=== PATIENT | female | born 1965 | race Caucasian/White ===

== ENCOUNTER 2018-03-05 17:02 | Emergency (ER) | payer MEDICAID ==
[~2018-03-05] VITALS: Ht 167.6 cm; Wt 70.0 kg
[2018-03-05] MEDS ORDERED: IBUPROFEN 800MG TABLET PO ONE (23:45)
[2018-03-06 03:43] VITALS: BP 135/60
== END 2018-03-06 03:47 | disposition home or self-care (01) ==
LOC: ER 17:02
DX: S92.402A Displaced unspecified fracture of left great toe, initial encounter for closed fracture (principal); S40.012A Contusion of left shoulder, initial encounter; Y04.8XXA Assault by other bodily force, initial encounter; Y93.89 Activity, other specified; R03.0 Elevated blood-pressure reading, without diagnosis of hypertension; Y92.89 Other specified places as the place of occurrence of the external cause; Y04.0XXA Assault by unarmed brawl or fight, initial encounter
CPT/HCPCS: 73030; 73630; 81025; 99283